=== PATIENT | male | born 1965 | race Caucasian/White ===

== ENCOUNTER 2020-09-18 12:21 | Emergency (ER) | payer OTHER ==
[~2020-09-18] VITALS: Ht 172.7 cm; Wt 104.3 kg
[2020-09-18 14:25] LABS: BASO % 0.3 % (0.0-1.0); EOS % 0.1 % (1.0-4.0); HEMATOCRIT 54.4 % (42.0-52.0); LYMPH # 0.7 10*3/uL (1.3-4.4); LYMPH % 4.8 % (27.0-41.0); MEAN CORPUSCULAR HGB 30.4 pg (27.0-31.0); MEAN CORPUSCULAR HGB CONC 32.4 g/dl (33.0-37.0); MEAN PLATELET VOLUME 9.3 fl (9.6-12.3); MONO # 0.9 10*3/uL (0.1-1.0); MONO % 6.4 % (3.0-9.0); NEUT % 87.9 % (47.0-73.0); PLATELET COUNT AUTOMATED 257 10*3/uL (130-400); RED BLOOD COUNT 5.79 10*6/uL (4.50-5.90); RED CELL DISTRI WIDTH 13.1 % (0-14.5); WHITE BLOOD COUNT 13.6 10*3/uL (4.8-10.8)
[2020-09-18 14:36] LABS: BILIRUBIN 2+ (Negative); BLOOD 1+ (Negative); CLARITY Clear (Clear); COLOR Dark Yellow (Yellow); GLUCOSE Negative (Negative); KETONE 4+ (Negative); LEUKO ESTERASE Trace (Negative); NITRITE Negative (Negative); PH 5.5 (4.5-8.0); SPECIFIC GRAVITY >= 1.030 (1.001-1.030)
[2020-09-18 14:48] LABS: ALKALINE PHOSPHATASE 84 U/L (45-117); BUN 10 mg/dl (7-24); CHLORIDE 101 mmol/L (98-107); CREATININE 1.13 mg/dL (0.70-1.30); LIPASE 169 U/L (73-393); SGOT/AST 31 IU/L (3-35); SGPT/ALT 49 U/L (12-78); SODIUM 136 mmol/L (136-145); TOTAL PROTEIN 8.2 gm/dL (6.4-8.2)
[2020-09-18 14:53] LABS: EPITHELIAL CELLS 0-2
[2020-09-18 14:54] LABS: BACTERIA 1+; MUCOUS 2+
[2020-09-18 14:55] LABS: TROPONIN I < 0.015 ng/ml (<0.045)
[2020-09-18] MEDS ORDERED: FLAGYL500 MG PO (19:18)
[2020-09-18] MEDS ORDERED: CIPRO500 MG PO (19:18)
== END 2020-09-18 19:24 | disposition home or self-care (01) ==
LOC: ED 12:21
PROVIDERS: Emergency Medicine; Nurse Practitioner
DX: K52.9 Noninfective gastroenteritis and colitis, unspecified (principal); E86.0 Dehydration; N40.0 Benign prostatic hyperplasia without lower urinary tract symptoms; N39.0 Urinary tract infection, site not specified; J45.909 Unspecified asthma, uncomplicated; Z88.8 Allergy status to other drugs, medicaments and biological substances; Z88.0 Allergy status to penicillin